=== PATIENT | male | born 1985 | race Caucasian/White ===

== ENCOUNTER 2017-08-12 02:15 | Emergency (ER) | payer MEDICAID ==
[~2017-08-12] VITALS: Ht 175.3 cm; Wt 76.7 kg
[2017-08-12 02:18] VITALS: BP 145/88
== END 2017-08-12 02:56 | disposition home or self-care (01) ==
LOC: ED 02:46
DX: Z00.00 Encounter for general adult medical examination without abnormal findings (principal)
CPT/HCPCS: 99281